=== PATIENT | male | born 1940 | race Caucasian/White ===

== ENCOUNTER 2017-09-18 15:56 | Inpatient (IN) | payer MEDICARE, MEDICAID ==
[~2017-09-18] VITALS: Ht 177.8 cm; Wt 116.4 kg
[~2017-09-18 15:56] MED LIST: NO HOME MEDS
[2017-09-18 17:17] LABS: BASOPHILS % (AUTO) 0.2 % (0-1); EOSINOPHILS # (AUTO) 0.1 X10'3 (0-0.9); EOSINOPHILS % (AUTO) 1.3 % (0-6); HEMATOCRIT 39.2 % (42.0-52.0); HEMOGLOBIN 13.1 g/dl (14.0-17.9); LYMPHOCYTES # (AUTO) 0.7 X10'3 (1.1-4.8); LYMPHOCYTES % (AUTO) 9.6 % (21-51); MEAN CORPUSCULAR HEMOGLOBIN 26.5 PG (27.0-31.0); MEAN CORPUSCULAR HGB CONC 33.4 % (33.0-36.5); MEAN CORPUSCULAR VOLUME 79.1 FL (78-98); MEAN PLATELET VOLUME 7.8 FL (7.4-10.4); MONOCYTES # (AUTO) 0.7 X10'3 (0-0.9); MONOCYTES % (AUTO) 9.3 % (2-12); NEUTROPHILS # (AUTO) 6.1 X10'3 (1.8-7.7); NEUTROPHILS % (AUTO) 79.6 % (42-75); PLATELET COUNT 528 X10'3 (140-440); RED BLOOD COUNT 4.96 X10'6 (4.70-6.10); RED CELL DISTRIBUTION WIDTH 15.3 % (11.5-14.5); WHITE BLOOD COUNT 7.6 X10'3 (4.5-11.0)
[2017-09-18] MEDS ORDERED: levoFLOXACIN-Levaquin 500mg/D5 100 ML IV ONE (17:20)
[2017-09-18 17:27] LABS: INR 1.1 INR; PARTIAL THROMBOPLASTIN TIME 31 SECONDS (22-32); PROTHROMBIN TIME 11.4 SECONDS (9.0-12.0)
[2017-09-18 17:34] LABS: AMMONIA < 10 UMOL/L (11-32); LACTIC SEPSIS 1.7 MMOL/L (0.4-2.0)
[2017-09-18] MEDS ORDERED: adenosine 3mg/ml 2ml vial IV ONE ×2 (17:35→17:40)
[2017-09-18 17:36] LABS: SODIUM 144 MMOL/L (135-145)
[2017-09-18 18:03] LABS: ALANINE AMINOTRANSFERASE 35 U/L (12-78); ALBUMIN 2.8 G/DL (3.4-5.0); ALBUMIN/GLOBULIN RATIO 0.5 (1.1-1.5); ALKALINE PHOSPHATASE 95 IU/L (46-116); ANION GAP 13 (8-16); ASPARTATE AMINO TRANSFERASE 29 U/L (10-37); BILIRUBIN,TOTAL 0.5 MG/DL (0.1-1.0); BLOOD UREA NITROGEN 15 MG/DL (7-18); CALCIUM 8.8 MG/DL (8.5-10.1); CHLORIDE 107 MMOL/L (99-107); CREATININE 1.15 MG/DL (0.60-1.10); GLUCOSE 99 MG/DL (70-104); TOTAL CARBON DIOXIDE 24.3 MMOL/L (24-32); TOTAL PROTEIN 8.1 G/DL (6.4-8.2); TROPONIN I < 0.04 NG/ML (0.0-0.05); eGFR 62 ML/MIN
[2017-09-18 18:05] LABS: ETHANOL < 0.010 GM/DL (0.0-0.010)
[2017-09-18] MEDS ORDERED: normal saline 1000ml 1,000 ML IV ONE (18:10)
[2017-09-18] MEDS: metoprolol tartrate 1mg/ml inj IV SCH ×3 (18:14→19:11)
[2017-09-18] MEDS ORDERED: diltiazem 5mg/ml 5ml inj. IV ONE ×2 (19:20→21:00)
[2017-09-18] MEDS ORDERED: DILTIAZEM IV ONE (19:35)
[2017-09-18] MEDS ORDERED: ALBU18HF2 INH (20:34)
[2017-09-18] MEDS ORDERED: AMLO10TA13 PO (20:34)
[2017-09-18] MEDS ORDERED: CLON0.2T2 PO (20:34)
[2017-09-18] MEDS ORDERED: LISI-600 PO (20:34)
[2017-09-18] MEDS ORDERED: HYDR25TA4 PO (20:34)
[2017-09-18] MEDS ORDERED: diltiazem-NS 100mg/100ml 100 ML IV SCH (20:40)
[2017-09-19] MEDS ORDERED: magnesium 2GM in 50ml NS 50 ML IV PRN (00:05)
[2017-09-19] MEDS ORDERED: acetaminophen 325mg tablet PO PRN (00:05)
[2017-09-19] MEDS ORDERED: mag hydrox/Alum hydrox/simeth 30ml oral suspension PO PRN (00:05)
[2017-09-19] MEDS ORDERED: ipratropium/albuterol 3ml nebule NEB PRN (00:05)
[2017-09-19] MEDS ORDERED: ondansetron/PF 4mg/2ml inj IV PRN (00:05)
[2017-09-19] MEDS ORDERED: magnesium 4gm in 100ml NS 100 ML IV PRN (00:05)
[2017-09-19] MEDS ORDERED: bisacodyl 10mg suppository rectal RC PRN (00:05)
[2017-09-19] MEDS ORDERED: potassium Cl 40MEQ/NS 500ml 500 ML IV PRN ×2 (00:05)
[2017-09-19] MEDS: heparin, porcine 5000 units/ml vial SQ SCH ×2 (01:18→08:56)
[2017-09-19 02:30] VITALS: BP 163/74
[2017-09-19 05:50] LABS: BASOPHILS % (AUTO) 0.7 % (0-1); EOSINOPHILS # (AUTO) 0.1 X10'3 (0-0.9); HEMATOCRIT 36.4 % (42.0-52.0); HEMOGLOBIN 12.1 g/dl (14.0-17.9); LYMPHOCYTES % (AUTO) 15.4 % (21-51); MEAN CORPUSCULAR HEMOGLOBIN 26.2 PG (27.0-31.0); MEAN CORPUSCULAR HGB CONC 33.4 % (33.0-36.5); MEAN CORPUSCULAR VOLUME 78.6 FL (78-98); MEAN PLATELET VOLUME 8.2 FL (7.4-10.4); MONOCYTES # (AUTO) 0.7 X10'3 (0-0.9); MONOCYTES % (AUTO) 11.3 % (2-12); NEUTROPHILS # (AUTO) 4.7 X10'3 (1.8-7.7); NEUTROPHILS % (AUTO) 70.6 % (42-75); PLATELET COUNT 458 X10'3 (140-440); RED BLOOD COUNT 4.63 X10'6 (4.70-6.10); RED CELL DISTRIBUTION WIDTH 15.4 % (11.5-14.5); WHITE BLOOD COUNT 6.6 X10'3 (4.5-11.0)
[2017-09-19 06:00] VITALS: BP 142/56
[2017-09-19 06:33] LABS: ALANINE AMINOTRANSFERASE 37 U/L (12-78); ALBUMIN 2.7 G/DL (3.4-5.0); ALKALINE PHOSPHATASE 83 IU/L (46-116); ANION GAP 13 (8-16); CHLORIDE 108 MMOL/L (99-107); CHOL/HDL RATIO 3.4 (0.00-4.99); CHOLESTEROL 82 MG/DL (0-200); CREATININE 1.19 MG/DL (0.60-1.10); HDL CHOLESTEROL 24 MG/DL (35-60); LDL CHOLESTEROL 49 MG/DL (50-100); POTASSIUM 3.9 MMOL/L (3.5-5.1); SODIUM 143 MMOL/L (135-145); TOTAL CARBON DIOXIDE 22.5 MMOL/L (24-32); TRIGLYCERIDES 49 MG/DL (20-135); eGFR 59 ML/MIN
[2017-09-19 06:53] LABS: ALBUMIN/GLOBULIN RATIO 0.6 (1.1-1.5); ASPARTATE AMINO TRANSFERASE 27 U/L (10-37); BILIRUBIN,TOTAL 0.6 MG/DL (0.1-1.0); BLOOD UREA NITROGEN 20 MG/DL (7-18); BUN/CREATININE RATIO 16.8 (5.4-32.0); CALCIUM 8.8 MG/DL (8.5-10.1); GLUCOSE 85 MG/DL (70-104); TOTAL PROTEIN 7.4 G/DL (6.4-8.2)
[2017-09-19] MEDS ORDERED: ceFAZolin 1GM/D5W- ADD-VANTAGE 50 ML IV SCH (08:00)
[2017-09-19] MEDS: K and/or MAG REPLACEMENT MC SCH (08:00)
[2017-09-19 11:00] VITALS: BP 145/47
[2017-09-19 15:00] VITALS: BP 165/65
[2017-09-19] MEDS: aspirin 300mg supp.rect RC SCH (17:57)
[2017-09-19 18:00] VITALS: BP 164/69
[2017-09-19] MEDS: lactobacillus rhamnosus 10,000 MMU CELLS/CAPSULE PO SCH (19:22)
[2017-09-19] MEDS ORDERED: heparin, porcine 5000 units/ml vial SQ SCH (20:00)
[2017-09-19 22:00] VITALS: BP 187/79
[2017-09-20 02:00] VITALS: BP 160/60
[2017-09-20 06:00] VITALS: BP 175/62
[2017-09-20] MEDS: K and/or MAG REPLACEMENT MC SCH (08:00)
[2017-09-20] MEDS: lactobacillus rhamnosus 10,000 MMU CELLS/CAPSULE PO SCH ×2 (08:00→19:24)
[2017-09-20] MEDS: aspirin 300mg supp.rect RC SCH (08:00)
[2017-09-20] MEDS: enoxaparin 100mg/ml syringe SUBCUT SCH ×2 (09:43→19:22)
[2017-09-20 11:00] VITALS: BP 181/66
[2017-09-20 15:00] VITALS: BP 156/59
[2017-09-20 16:33] LABS: CLARITY,URINE SLIGHTLY CLOUDY (Clear); COLOR,URINE YELLOW (Yellow); GLUCOSE, URINE NEGATIVE (Neg); KETONES,URINE 40 mg/dl (Neg); LEUKOCYTE ESTERASE ,URINE TRACE (Neg); NITRITES, URINE NEGATIVE (Neg); OCCULT BLOOD,URINE MODERATE (Neg); PROTEIN,URINE 30 mg/dl (Neg)
[2017-09-20 16:38] LABS: UA COLLECTION TYPE STRAIGHT CATH
[2017-09-20 16:39] LABS: BACTERIA,URINE FEW /HPF (Neg); MUCUS STRANDS FEW /LPF (Neg); SQUAMOUS EPITHELIAL CELL,UR FEW /LPF (FEW)
[2017-09-20 16:46] LABS: URINE AMPHETAMINE SCREEN NEGATIVE (Neg); URINE BARBITUATE SCREEN NEGATIVE (Neg); URINE BENZODIAZEPINES SCREEN NEGATIVE (Neg); URINE CANNABINOID SCREEN NEGATIVE (Neg); URINE COCAINE SCREEN NEGATIVE (Neg); URINE METHADONE SCREEN NEGATIVE (Neg); URINE OPIATE SCREEN NEGATIVE (Neg); URINE PHENCYCLIDINE SCREEN NEGATIVE (Neg)
[2017-09-20] MEDS ORDERED: fat emulsion IV 181.82 ML, MVI, adult No.4 with vit. K 4.55 ML, Trace element-5 inj. 0.... IV SCH ×4 (17:15)
[2017-09-20] MEDS ORDERED: Dextrose 10%-water IV solution 1,000 ML IV PRN (17:15)
[2017-09-20] MEDS ORDERED: magnesium 4gm in 100ml NS 100 ML IV PRN (17:15)
[2017-09-20] MEDS ORDERED: magnesium Cl slow-release 64mg tablet PO PRN (17:15)
[2017-09-20] MEDS ORDERED: magnesium 2GM in 50ml NS 50 ML IV PRN (17:15)
[2017-09-20] MEDS: CefTRIAXone/D5W-Rocephin 1gm 50 ML IV SCH (17:57)
[2017-09-20 18:00] VITALS: BP 192/71
[2017-09-20] MEDS ORDERED: glucagon, human recombinant 1mg kit ONE (21:20)
[2017-09-20 21:28] LABS: ALANINE AMINOTRANSFERASE 34 U/L (12-78); ALBUMIN 2.7 G/DL (3.4-5.0); ALBUMIN/GLOBULIN RATIO 0.6 (1.1-1.5); ALKALINE PHOSPHATASE 83 IU/L (46-116); ANION GAP 11 (8-16); ASPARTATE AMINO TRANSFERASE 29 U/L (10-37); BILIRUBIN,TOTAL 0.5 MG/DL (0.1-1.0); BLOOD UREA NITROGEN 16 MG/DL (7-18); BUN/CREATININE RATIO 14.8 (5.4-32.0); CALCIUM 8.5 MG/DL (8.5-10.1); CHLORIDE 107 MMOL/L (99-107); CREATININE 1.08 MG/DL (0.60-1.10); GLUCOSE 67 MG/DL (70-104); MAGNESIUM 1.8 MG/DL (1.5-2.4); PHOSPHORUS 3.4 MG/DL (2.3-4.5); POTASSIUM 3.9 MMOL/L (3.5-5.1); PREALBUMIN 13.6 MG/DL (19-36); SODIUM 143 MMOL/L (135-145); TOTAL CARBON DIOXIDE 25.4 MMOL/L (24-32); TOTAL PROTEIN 7.5 G/DL (6.4-8.2); TRIGLYCERIDES 58 MG/DL (20-135); eGFR 66 ML/MIN
[2017-09-20 22:00] VITALS: BP 195/80
[2017-09-21] VITALS (30 sets, daily range): BP systolic 77–189; BP diastolic 40–98
[2017-09-21 06:23] LABS: BASOPHILS % (AUTO) 0.4 % (0-1); EOSINOPHILS # (AUTO) 0.3 X10'3 (0-0.9); EOSINOPHILS % (AUTO) 4.3 % (0-6); HEMATOCRIT 35.1 % (42.0-52.0); HEMOGLOBIN 11.6 g/dl (14.0-17.9); LYMPHOCYTES # (AUTO) 0.8 X10'3 (1.1-4.8); LYMPHOCYTES % (AUTO) 13.3 % (21-51); MEAN CORPUSCULAR HEMOGLOBIN 26.2 PG (27.0-31.0); MEAN CORPUSCULAR HGB CONC 32.9 % (33.0-36.5); MEAN CORPUSCULAR VOLUME 79.4 FL (78-98); MEAN PLATELET VOLUME 8.4 FL (7.4-10.4); MONOCYTES # (AUTO) 0.7 X10'3 (0-0.9); MONOCYTES % (AUTO) 11.4 % (2-12); NEUTROPHILS # (AUTO) 4.5 X10'3 (1.8-7.7); NEUTROPHILS % (AUTO) 70.6 % (42-75); PLATELET COUNT 413 X10'3 (140-440); RED BLOOD COUNT 4.42 X10'6 (4.70-6.10); RED CELL DISTRIBUTION WIDTH 15.3 % (11.5-14.5); WHITE BLOOD COUNT 6.4 X10'3 (4.5-11.0)
[2017-09-21 06:50] LABS: ALANINE AMINOTRANSFERASE 29 U/L (12-78); ALBUMIN 2.5 G/DL (3.4-5.0); ALKALINE PHOSPHATASE 79 IU/L (46-116); ANION GAP 11 (8-16); CHLORIDE 106 MMOL/L (99-107); CREATININE 1.05 MG/DL (0.60-1.10); MAGNESIUM 1.8 MG/DL (1.5-2.4); POTASSIUM 3.5 MMOL/L (3.5-5.1); SODIUM 142 MMOL/L (135-145); eGFR 69 ML/MIN
[2017-09-21 06:51] LABS: ALBUMIN/GLOBULIN RATIO 0.6 (1.1-1.5); ASPARTATE AMINO TRANSFERASE 30 U/L (10-37); BILIRUBIN,TOTAL 0.5 MG/DL (0.1-1.0); BLOOD UREA NITROGEN 15 MG/DL (7-18); BUN/CREATININE RATIO 14.3 (5.4-32.0); CALCIUM 8.3 MG/DL (8.5-10.1); GLUCOSE 134 MG/DL (70-104); PHOSPHORUS 3.2 MG/DL (2.3-4.5); TOTAL PROTEIN 6.9 G/DL (6.4-8.2)
[2017-09-21] MEDS: K and/or MAG REPLACEMENT MC SCH (08:00)
[2017-09-21] MEDS: lactobacillus rhamnosus 10,000 MMU CELLS/CAPSULE PO SCH ×2 (08:00→20:00)
[2017-09-21] MEDS: CefTRIAXone/D5W-Rocephin 1gm 50 ML IV SCH (08:08)
[2017-09-21] MEDS: enoxaparin 100mg/ml syringe SUBCUT SCH ×2 (08:09→20:00)
[2017-09-21] MEDS ORDERED: hydrALAZINE 20mg/ml inj. IV PRN (08:55)
[2017-09-21] MEDS ORDERED: ONDA4TAB12 PO (14:28)
[2017-09-21] MEDS ORDERED: amiodarone/D5 450MG/250ML BAG 250 ML IV SCH ×3 (15:45→16:05)
[2017-09-21] MEDS ORDERED: amiodarone 150mg/dext, iso-os 100 ML IV ONE (15:45)
[2017-09-21] MEDS: amiodarone/D5 360MG/200ML BAG 200 ML IV SCH ×2 (15:55→21:59)
[2017-09-21] MEDS ORDERED: diltiazem 5mg/ml 5ml inj. IV STA (16:46)
[2017-09-21] MEDS ORDERED: diltiazem-NS 100mg/100ml 100 ML IV SCH (16:55)
[2017-09-21] MEDS ORDERED: verapamil 2.5 mg/ml inj IV ONE (16:55)
[2017-09-21] MEDS ORDERED: fat emulsion IV 100 ML, MVI, adult No.4 with vit. K 5 ML, Trace element-5 inj. 0.5 ML i... IV SCH ×4 (17:00)
[2017-09-21] MEDS: pantoprazole 40 MG vial IV SCH (17:41)
[2017-09-21] MEDS: piperacillin/tazo 3.375gm/50ml 50 ML IV SCH (20:00)
[2017-09-21 21:47] LABS: BASOPHILS % (AUTO) 0.3 % (0-1); EOSINOPHILS % (AUTO) 0 % (0-6); HEMATOCRIT 31.5 % (42.0-52.0); HEMOGLOBIN 10.3 g/dl (14.0-17.9); LYMPHOCYTES # (AUTO) 0.4 X10'3 (1.1-4.8); LYMPHOCYTES % (AUTO) 4.3 % (21-51); MEAN CORPUSCULAR HEMOGLOBIN 25.7 PG (27.0-31.0); MEAN CORPUSCULAR HGB CONC 32.8 % (33.0-36.5); MEAN CORPUSCULAR VOLUME 78.4 FL (78-98); MEAN PLATELET VOLUME 8.4 FL (7.4-10.4); MONOCYTES # (AUTO) 0.7 X10'3 (0-0.9); MONOCYTES % (AUTO) 6.8 % (2-12); NEUTROPHILS # (AUTO) 8.9 X10'3 (1.8-7.7); NEUTROPHILS % (AUTO) 88.6 % (42-75); PLATELET COUNT 440 X10'3 (140-440); RED BLOOD COUNT 4.02 X10'6 (4.70-6.10); RED CELL DISTRIBUTION WIDTH 15.4 % (11.5-14.5); WHITE BLOOD COUNT 10.1 X10'3 (4.5-11.0)
[2017-09-21 22:09] LABS: ALANINE AMINOTRANSFERASE 26 U/L (12-78); ALBUMIN 2.4 G/DL (3.4-5.0); ALBUMIN/GLOBULIN RATIO 0.6 (1.1-1.5); ALKALINE PHOSPHATASE 75 IU/L (46-116); ANION GAP 10 (8-16); ASPARTATE AMINO TRANSFERASE 23 U/L (10-37); BILIRUBIN,TOTAL 0.5 MG/DL (0.1-1.0); BLOOD UREA NITROGEN 17 MG/DL (7-18); BUN/CREATININE RATIO 13.7 (5.4-32.0); CALCIUM 8.3 MG/DL (8.5-10.1); CHLORIDE 105 MMOL/L (99-107); CREATININE 1.24 MG/DL (0.60-1.10); MAGNESIUM 1.7 MG/DL (1.5-2.4); POTASSIUM 3.7 MMOL/L (3.5-5.1); SODIUM 140 MMOL/L (135-145); TOTAL CARBON DIOXIDE 24.7 MMOL/L (24-32); TOTAL PROTEIN 6.7 G/DL (6.4-8.2); eGFR 57 ML/MIN
[2017-09-21 22:11] LABS: GLUCOSE 157 MG/DL (70-104)
[2017-09-22] VITALS (8 sets, daily range): BP systolic 108–147; BP diastolic 46–71
[2017-09-22] MEDS ORDERED: potassium Cl 40MEQ/NS 500ml 500 ML IV PRN ×2 (01:35)
[2017-09-22] MEDS: piperacillin/tazo 3.375gm/50ml 50 ML IV SCH ×2 (01:46→07:14)
[2017-09-22] MEDS ORDERED: potassium Cl 40MEQ/NS 500ml 500 ML IV ONE (02:15)
[2017-09-22] MEDS ORDERED: diltiazem-NS 100mg/100ml 100 ML IV ONE (05:17)
[2017-09-22] MEDS ORDERED: [UNRECOGNIZED DRUG - REMARK] IV SCH ×5 (07:00)
[2017-09-22] MEDS: pantoprazole 40 MG vial IV SCH (07:13)
[2017-09-22] MEDS: CefTRIAXone/D5W-Rocephin 1gm 50 ML IV SCH (07:13)
[2017-09-22] MEDS: enoxaparin 100mg/ml syringe SUBCUT SCH (07:46)
[2017-09-22] MEDS: lactobacillus rhamnosus 10,000 MMU CELLS/CAPSULE PO SCH (07:48)
[2017-09-22 09:12] LABS: BASOPHILS % (AUTO) 0.2 % (0-1); EOSINOPHILS # (AUTO) 0.2 X10'3 (0-0.9); EOSINOPHILS % (AUTO) 1.4 % (0-6); HEMATOCRIT 24.3 % (42.0-52.0); HEMOGLOBIN 8.1 g/dl (14.0-17.9); LYMPHOCYTES # (AUTO) 0.7 X10'3 (1.1-4.8); LYMPHOCYTES % (AUTO) 6.3 % (21-51); MEAN CORPUSCULAR HEMOGLOBIN 25.9 PG (27.0-31.0); MEAN CORPUSCULAR HGB CONC 33.3 % (33.0-36.5); MEAN CORPUSCULAR VOLUME 77.8 FL (78-98); MEAN PLATELET VOLUME 8.1 FL (7.4-10.4); MONOCYTES # (AUTO) 1.1 X10'3 (0-0.9); MONOCYTES % (AUTO) 9.2 % (2-12); NEUTROPHILS # (AUTO) 9.7 X10'3 (1.8-7.7); NEUTROPHILS % (AUTO) 82.9 % (42-75); PLATELET COUNT 441 X10'3 (140-440); RED BLOOD COUNT 3.12 X10'6 (4.70-6.10); RED CELL DISTRIBUTION WIDTH 15.6 % (11.5-14.5); WHITE BLOOD COUNT 11.7 X10'3 (4.5-11.0)
[2017-09-22 09:28] LABS: ALANINE AMINOTRANSFERASE 28 U/L (12-78); ALBUMIN 2.2 G/DL (3.4-5.0); ALBUMIN/GLOBULIN RATIO 0.5 (1.1-1.5); ALKALINE PHOSPHATASE 64 IU/L (46-116); ANION GAP 15 (8-16); ASPARTATE AMINO TRANSFERASE 26 U/L (10-37); BILIRUBIN,TOTAL 0.6 MG/DL (0.1-1.0); BLOOD UREA NITROGEN 24 MG/DL (7-18); BUN/CREATININE RATIO 10.3 (5.4-32.0); CALCIUM 8.3 MG/DL (8.5-10.1); CHLORIDE 104 MMOL/L (99-107); CREATININE 2.34 MG/DL (0.60-1.10); GLUCOSE 195 MG/DL (70-104); MAGNESIUM 1.9 MG/DL (1.5-2.4); PHOSPHORUS 4.1 MG/DL (2.3-4.5); POTASSIUM 3.7 MMOL/L (3.5-5.1); SODIUM 142 MMOL/L (135-145); TOTAL PROTEIN 6.3 G/DL (6.4-8.2); eGFR 27 ML/MIN
[2017-09-22 12:34] LABS: BASOPHILS % (AUTO) 0 % (0-1); EOSINOPHILS # (AUTO) 0.2 X10'3 (0-0.9); EOSINOPHILS % (AUTO) 1.2 % (0-6); HEMATOCRIT 23.8 % (42.0-52.0); HEMOGLOBIN 7.9 g/dl (14.0-17.9); LYMPHOCYTES # (AUTO) 0.7 X10'3 (1.1-4.8); LYMPHOCYTES % (AUTO) 5.1 % (21-51); MEAN CORPUSCULAR HEMOGLOBIN 25.8 PG (27.0-31.0); MEAN CORPUSCULAR HGB CONC 33.1 % (33.0-36.5); MEAN CORPUSCULAR VOLUME 78.1 FL (78-98); MEAN PLATELET VOLUME 8.6 FL (7.4-10.4); MONOCYTES # (AUTO) 1.6 X10'3 (0-0.9); NEUTROPHILS # (AUTO) 10.9 X10'3 (1.8-7.7); NEUTROPHILS % (AUTO) 81.7 % (42-75); PLATELET COUNT 438 X10'3 (140-440); RED BLOOD COUNT 3.04 X10'6 (4.70-6.10); WHITE BLOOD COUNT 13.4 X10'3 (4.5-11.0)
[2017-09-22 12:46] LABS: ALBUMIN 2.2 G/DL (3.4-5.0); ANION GAP 13 (8-16); BLOOD UREA NITROGEN 26 MG/DL (7-18); BUN/CREATININE RATIO 9.3 (5.4-32.0); CALCIUM 8.2 MG/DL (8.5-10.1); CHLORIDE 106 MMOL/L (99-107); CREATININE 2.81 MG/DL (0.60-1.10); POTASSIUM 4.5 MMOL/L (3.5-5.1); SODIUM 143 MMOL/L (135-145); TOTAL CARBON DIOXIDE 23.9 MMOL/L (24-32); eGFR 22 ML/MIN
[2017-09-22 12:50] LABS: GLUCOSE 195 MG/DL (70-104)
[2017-09-22] MEDS ORDERED: morphine 4 MG/ML inj SYRINge ONE (13:42)
[2017-09-22] MEDS ORDERED: morphine 4 MG/ML inj SYRINge IV ONE ×2 (13:50)
[2017-09-22] MEDS ORDERED: diphenhydrAMINE 50 mg/ml inj IV ONE (13:50)
[2017-09-22] MEDS ORDERED: pantoprazole 40MG/NS 100ML BAG 100 ML IV SCH (14:09)
[2017-09-22] MEDS ORDERED: furosemide 40mg/4ml inj IV ONE (15:50)
[2017-09-22] MEDS ORDERED: diltiazem-NS 100mg/100ml 100 ML IV SCH ×3 (16:55)
[2017-09-23] MEDS ORDERED: enoxaparin 100mg/ml syringe SUBCUT SCH (08:00)
== END 2017-09-22 14:00 | disposition expired | DRG 64 ==
LOC: ER 15:56 → ED HOLD 09-19 00:01 → EDBEDREQ 09-19 00:45 → CMPBEDREQ 09-19 01:28 → PCU 3S 09-19 01:31
PROVIDERS: ADMIT Family Medicine; ATTEND Internal Medicine
DX: I63.40 Cerebral infarction due to embolism of unspecified cerebral artery (principal); J18.9 Pneumonia, unspecified organism; G93.40 Encephalopathy, unspecified; I47.1 Supraventricular tachycardia; I48.92 Unspecified atrial flutter; N39.0 Urinary tract infection, site not specified; N17.9 Acute kidney failure, unspecified; K29.70 Gastritis, unspecified, without bleeding; I12.9 Hypertensive chronic kidney disease with stage 1 through stage 4 chronic kidney disease, or unspecified chronic kidney disease; N18.9 Chronic kidney disease, unspecified; D64.9 Anemia, unspecified; H54.61 Unqualified visual loss, right eye, normal vision left eye; J44.9 Chronic obstructive pulmonary disease, unspecified; Z66 Do not resuscitate; Z90.49 Acquired absence of other specified parts of digestive tract; Z79.899 Other long term (current) drug therapy; Z87.891 Personal history of nicotine dependence
CPT/HCPCS: 36415; 70450; 70544; 70551; 71045; 80048; 80053; 80061; 80305; 80320; 81001; 82140; 82948; 83605; 83735; 84100; 84134; 84478; 84484; 85025; 85610; 85730; 87040; 87070; 87088; 92616; 93005; 93306; 93880; 94640; 94760; A4344; A4353; C9113; J0153; J0282; J0360; J0690; J0696; J1610; J1644; J1650; J1956; J2270; J2405; J2543; J3475; J3480; J3490; J7030